=== PATIENT | male | born 1990 | race Native Hawaiian/Other Pacific Islander ===

== ENCOUNTER 2017-09-27 15:21 | Emergency (ER) | payer BC ==
[~2017-09-27] VITALS: Ht 198.1 cm; Wt 129.7 kg
== END 2017-09-27 17:20 | disposition home or self-care (01) ==
LOC: ED 15:21
DX: S09.8XXA Other specified injuries of head, initial encounter (principal); S06.0X0A Concussion without loss of consciousness, initial encounter; W22.8XXA Striking against or struck by other objects, initial encounter
CPT/HCPCS: 99283

== ENCOUNTER 2022-10-05 13:30 | Emergency (ER) | payer OTHER, BC ==
[~2022-10-05] VITALS: Ht 198.1 cm; Wt 145.1 kg
[2022-10-05 13:40] VITALS: BP 150/83; TEMP 98.7
== END 2022-10-05 14:05 | disposition home or self-care (01) ==
LOC: ED 13:30
PROC: 0HQ1XZZ Repair Face Skin, External Approach (ICD-10-PCS; principal; 2022-10-05)
DX: S01.81XA Laceration without foreign body of other part of head, initial encounter (principal); W22.8XXA Striking against or struck by other objects, initial encounter; Y92.89 Other specified places as the place of occurrence of the external cause
CPT/HCPCS: 90715; 99284